=== PATIENT | female | born 1975 ===

== ENCOUNTER 2023-09-13 09:13 | Outpatient (CLI) | payer OTHER ==
[2023-09-13 10:03] LABS: PH,URINE 7.5 (5.0-8.0); URINE APPEARANCE Clear; URINE BILIRRUBIN Negative (NEGATIVE); URINE BLOOD Negative; URINE COLOR Yellow; URINE GLUCOSE Negative (NEGATIVE); URINE LEUKOCYTE Negative; URINE NITRATE Negative; URINE PROTEIN Negative (NEGATIVE); URINE UROBILINOGEN 0.2 E.U./dl
[2023-09-13 10:06] LABS: URINE BACTERIA 61.7 uL (0.0-1933); URINE EPITHELIAL CELLS 15.4 uL (0.0-38.8); URINE RBC 6.1 uL (0.0-20.8); URINE WBC 2.1 uL (0.0-23.2)
[2023-09-13 10:17] LABS: HEMOGLOBIN 13.2 g/dL (12.0-15.00); MEAN CELL VOLUME 88.3 fL (80.00-100.00); MEAN CORPUSCULAR HEMOGLOBIN 30.7 pg (27.00-32.0); MEAN CORPUSCULAR HGB CONC 34.7 g/dl (32.0-36.0); PLATELET COUNT 217 K/uL (150-450); RED BLOOD COUNT 4.31 M/uL (4.00-6.00); RED CELL DISTRIBUTION WIDTH 13.1 % (11.5-14.5)
[2023-09-13 10:26] LABS: PARTIAL THROMBOPLASTIN TIME 27.1 SECONDS (22.0-34.0); PROTHROMBIN TIME 10.5 SECONDS (9.0-11.5)
[2023-09-13 10:43] LABS: BILIRUBIN TOTAL 0.52 mg/dL (0.3-1.2); CALCIUM 9.1 mg/dL (8.5-10.1); CREATININE SERUM 0.58 mg/dL (0.55-1.02); GFR 111.92; GLOBULINA 4.3 G/DL (2.4-3.5); POTASSIUM 3.75 mEq/L (3.5-5.1); TOTAL PROTEIN 8.3 gm/dL (6.4-8.2)
[2023-10-03] MEDS ORDERED: PANTOPRAZOLE SO20 MG PO (12:32)
== END 2023-09-13 15:11 | disposition home or self-care (01) ==
LOC: LAB 09:13
PROVIDERS: ATTEND Specialist
DX: Z01.812 Encounter for preprocedural laboratory examination (principal); Z01.811 Encounter for preprocedural respiratory examination; K80.10 Calculus of gallbladder with chronic cholecystitis without obstruction

== ENCOUNTER 2023-10-09 05:35 | Day surgery (SDC) | payer OTHER ==
[~2023-10-09 05:35] MED LIST: PANTOPRAZOLE SO20 MG PO
== END 2023-10-09 13:20 | disposition home or self-care (01) ==
LOC: CIR.AMB 05:35
PROVIDERS: ATTEND Specialist
DX: K80.10 Calculus of gallbladder with chronic cholecystitis without obstruction (principal); Z20.822 Contact with and (suspected) exposure to COVID-19; Z88.2 Allergy status to sulfonamides; Z88.1 Allergy status to other antibiotic agents